=== PATIENT | female | born 1945 | race Caucasian/White ===

== ENCOUNTER 2017-05-10 10:40 | Day surgery (SDC) | payer MEDICARE, OTHER ==
--- NOTE | 2017-05-08 17:49 | HP ---
PROCEDURE DATE: 05/10/17 HISTORY OF PRESENT ILLNESS: The patient is a 71 y/o with history of heartburn, indigestion, and some diarrhea after eating. She has had history of cholecystectomy in the past. Family history negative for colon cancer or inflammatory bowel disease. Last colonoscopy was 8 years or so ago. No bloody stools. Occasional upper abdominal aches. Occasional left upper quadrant and left lower quadrant and some epigastric aches. She has had history of abdominal pain and diarrhea, unclear etiology. Feel she would benefit from upper and lower endoscopy for further evaluation. PAST MEDICAL HISTORY: She had 2 heart attacks in the past. She had coronary stents. She has had chronic obstructive pulmonary disease in the past. She also has some hypothyroidism in addition to some hypertension and heart disease. PAST SURGICAL HISTORY: She had 2 coronary stents. She had hysterectomy, cholecystectomy, bladder tie up, and foot surgery in the past. CURRENT MEDICATIONS: Jelani aspirin, furosemide, famotidine, levothyroxine, losartan, Klor-Con, tolterodine, hydrocodone, acetaminophen, ProAir HFA, Proventil, carvedilol, vitamin D3, rosuvastatin, loratadine, Lomotil. ALLERGIES: SHE HAS SOME SINUS ENVIRONMENTAL ISSUES, BUT NKDA. FAMILY HISTORY: Heart disease and diabetes. Negative for colon cancer. There is a history of cancer and chronic obstructive pulmonary disease in the family, but negative for colon cancer. SOCIAL HISTORY: No smoking or alcohol abuse. REVIEW OF SYSTEMS: 12 systems reviewed pertinent for multiple medical problems noted above. No chest pain or palpitations currently. 12 systems reviewed per admission assessment and preadmission questionnaire. Pertinent for as noted above. PHYSICAL EXAMINATION: GENERAL: No acute distress. HEENT: Sclerae nonicteric. NECK: No JVD. CHEST: Equal excursion. Nonlabored breathing. CVS: Regular rate and rhythm. ABDOMEN: Soft. Some mild tenderness in epigastrium, left upper quadrant, and left lower quadrant. No rebound. No guarding. No peritoneal signs. EXTREMITIES: No significant edema. NEURO: Alert, moving extremities symmetrically. No gross motor deficits noted. RECTAL: Deferred until time of endoscopy exam. IMPRESSION: HAS RECENT ABDOMINAL PAIN AND DIARRHEA, UNCLEAR ETIOLOGY. ALSO, IN NEED OF FOLLOW-UP SCREENING COLONOSCOPY. FELT SHE WOULD BENEFIT FROM EGD AND COLONOSCOPY FOR FURTHER EVALUATION. Shown the risk sheet and explained the procedure in detail, but not limited to, bleeding; infection; small risk of bowel injury or perforation possibly requiring open procedure; small risk of missed or nondiagnosis or incomplete exam possibly requiring barium enema or other studies or procedures; general risk of anesthesia or sedation; risk of bowel prep; postoperative risk of nausea or cramping, but not limited to. She also understands there is a possibility we may not be able to diagnose the etiology of her symptoms and she may need further work-up and/or testing or even referral to other specialist. She understands and agrees to the planned procedure. Will proceed with EGD and colonoscopy as an outpatient under MAC anesthesia.
[~2017-05-10 10:40] MED LIST: DIPRIVAN 200 MG/20 ML IV ONE
[2017-05-10] MEDS ORDERED: Lactated Ringers 1,000 ML IV ONE ×2 (10:49→13:02)
[2017-05-10] MEDS ORDERED: Lactated Ringers 1,000 ML IV SCH (11:00)
[2017-05-10 13:53] VITALS: O2SAT 97
[2017-05-10 14:07] VITALS: BP 139/69; PULSE 71
--- NOTE | 2017-05-10 15:50 | OP ---
SURGERY DATE: 05/10/17 SURGERY TIME: 1240 PREOPERATIVE DIAGNOSIS: 1. HISTORY OF HEARTBURN, INDIGESTION, AND DIARRHEA. 2. NEED FOR FOLLOW-UP SCREENING COLONOSCOPY HER LAST COLONOSCOPY WAS 8 YEARS OR SO AGO. POSTOPERATIVE DIAGNOSIS: 1. MILD GASTRITIS. 2. SMALL HIATAL HERNIA. 3. SMALL CECAL POLYP. 4. SMALL RAISED LESION TRANSVERSE COLON AND PROXIMAL AND DISTAL ASCENDING COLON. 5. DIVERTICULOSIS. 6. SMALL INTERNAL/EXTERNAL HEMORRHOIDS. PROCEDURE: 1. EGD. 2. Cold biopsy small bowel to evaluate for celiac sprue. 3. Cold biopsy antrum to evaluate for Helicobacter pylori. 4. Random cold biopsies distal esophagus given her symptoms to evaluate for microscopic esophagitis. 5. Colonoscopy to terminal ileum with hot biopsy removal of small cecal polyp. 6. Hot biopsy small raised lesions proximal and distal ascending colon as well as transverse colon. SURGEON: Dr. Luiz Donaldson. ANESTHESIA: MAC. ESTIMATED BLOOD LOSS: Minimal. INDICATIONS: As noted above. Risks and benefits explained in detail, but not limited to. Consent was obtained. DESCRIPTION OF PROCEDURE AND FINDINGS: The patient was taken to the OR. MAC anesthesia was introduced. After official time-out, no disagreement in planned procedure. Bite block positioned. Video gastroscope easily passed down the esophagus through the patent pylorus to the junction of the 2nd and 3rd portion of the duodenum. The duodenum and duodenal bulb grossly unremarkable given her symptom complaint. Cold biopsy taken to evaluate for celiac disease. Otherwise, the scope was pulled back in the stomach. She had some minimal to mild gastritis. Cold biopsy was taken to evaluate for Helicobacter pylori. Good hemostasis was noted. There were no signs of any ulcers or other mucosal lesions. On retroflex, she did have a small hiatal hernia. The scope was straightened. The gastroesophageal junction noted at about 40 cm. Z line looked pretty crisp, but given her symptom complaints, some random cold biopsies were taken to evaluate the distal esophagus to evaluate for microscopic esophagitis or other etiology of her symptom complaints. The remainder of the esophagus grossly unremarkable. No obvious evidence of any other mucosal lesions. The scope was withdrawn. Patient tolerated this portion of the procedure well. Attention was then turned to the colonoscope. Digital rectal exam revealed no masses. She did have some internal/external hemorrhoids. Video colonoscope inserted and passed up through the somewhat poorly prepped colon with some areas of liquidy semisolid stool limiting the exam slightly. Otherwise, the remainder of the scope had a fairly good prep. The scope was slowly, carefully passed up through the colon across the transverse, ascending to the terminal ileum. The terminal ileum was grossly unremarkable. There was a small polyp in the cecum. Was removed with hot biopsy forceps and brief bursts of cautery. There were a couple small raised lesions vs early polyps in the proximal and distal ascending colon removed with hot biopsy forceps and brief bursts of cautery elevating it well away from the bowel wall and an additional small raised lesion in the transverse colon was also removed with hot biopsy forceps. Good hemostasis was noted. The scope was then pulled back through the descending colon. Had some mild diverticulosis. Had some small internal/external hemorrhoids. There were no signs of any large polyps, masses, or obstructing lesions. The scope was withdrawn. The patient tolerated the procedure well. There were no immediate complications. Findings discussed with the family out in the waiting area.
== END 2017-05-10 14:20 | disposition home or self-care (01) ==
LOC: SDC 10:40
PROVIDERS: ATTEND Surgery
PROC: 0DB88ZX Excision of Small Intestine, Via Natural or Artificial Opening Endoscopic, Diagnostic (ICD-10-PCS; principal; 2017-05-10)
PROC: 0DB38ZX Excision of Lower Esophagus, Via Natural or Artificial Opening Endoscopic, Diagnostic (ICD-10-PCS; 2017-05-10)
PROC: 0DB78ZX Excision of Stomach, Pylorus, Via Natural or Artificial Opening Endoscopic, Diagnostic (ICD-10-PCS; 2017-05-10)
PROC: 0DBB8ZX Excision of Ileum, Via Natural or Artificial Opening Endoscopic, Diagnostic (ICD-10-PCS; 2017-05-10)
PROC: 0DBL8ZX Excision of Transverse Colon, Via Natural or Artificial Opening Endoscopic, Diagnostic (ICD-10-PCS; 2017-05-10)
PROC: 0DBK8ZX Excision of Ascending Colon, Via Natural or Artificial Opening Endoscopic, Diagnostic (ICD-10-PCS; 2017-05-10)
DX: K29.70 Gastritis, unspecified, without bleeding (principal); K44.9 Diaphragmatic hernia without obstruction or gangrene; D12.0 Benign neoplasm of cecum; K63.9 Disease of intestine, unspecified; K57.90 Diverticulosis of intestine, part unspecified, without perforation or abscess without bleeding; K64.4 Residual hemorrhoidal skin tags; K64.8 Other hemorrhoids; R19.7 Diarrhea, unspecified; Z12.11 Encounter for screening for malignant neoplasm of colon; J44.9 Chronic obstructive pulmonary disease, unspecified; E03.9 Hypothyroidism, unspecified; I10 Essential (primary) hypertension; I51.9 Heart disease, unspecified; Z98.61 Coronary angioplasty status; Z79.899 Other long term (current) drug therapy
CPT/HCPCS: 00740; 00810; 36415; 87081; 88305; J2704